=== PATIENT | male | born 1950 | race Caucasian/White ===

== ENCOUNTER → 2025-05-15 10:14 | Outpatient (REF) | payer MEDICARE, OTHER, SELFPAY ==
[2025-05-15 11:04] LABS: Hematocrit 44.2 % (39.0-52.0); Hemoglobin 15.1 g/dL (13.0-18.0); Mean Corp Hgb Conc. 34.2 g/dL (33.0-37.0); Mean Corpuscular Volume 90.9 fL (80.0-94.0); Nucleated Red Blood Cells % 0 % (-); Platelet Count 180 10^3/uL (130-400); Red Cell Dist. Width 13.2 % (11.5-14.5)
[2025-05-15 11:15] LABS: INR 1.62; PT 19.4 Sec (11.4-14.6)
[2025-05-15 11:27] LABS: ALT (SGPT) 41 U/L (0-50); AST (SGOT) 44 U/L (17-59); Albumin 4.9 g/dl (3.5-5.0); Alkaline Phosphatase 68 U/L (38-126); Blood Urea Nitrogen 15 mg/dl (9-20); Calcium 9.5 mg/dl (8.4-10.2); Carbon Dioxide 26 mmol/L (22-30); Chloride 105 mmol/L (98-107); Glucose 79 mg/dl (70-99); Magnesium 2.2 mg/dl (1.6-2.3); Potassium 3.7 mmol/L (3.5-5.1); Sodium 138 mmol/L (135-145); Total Protein 8.1 g/dl (6.3-8.2); eGFR > 60.00
== END ==
LOC: SDSPAT 10:14
PROVIDERS: ATTENDING PHYSICIAN Internal Medicine Cardiovascular Disease; FAMILY PHYSICIAN Internal Medicine; OTHER PHYSICIAN Internal Medicine Cardiovascular Disease
DX: I48.91 Unspecified atrial fibrillation (principal); I48.92 Unspecified atrial flutter
CPT/HCPCS: 36415; 75572; 80053; 83735; 85025; 85610; 86850; 86900; 86901; 93005; Q9967

== ENCOUNTER 2025-05-28 07:37 | Day surgery (SDC) | payer MEDICARE, OTHER, SELFPAY ==
--- NOTE | 2025-05-15 10:30 | HPS.HSE ---
Family Physician
-
Family Physician: NO INTERVIEW UNKNOWN
Chief Complaint
-
Paroxysmal atrial fibrillation and atrial flutter.
History of Present Illness
The patient is a 74 year old male presenting today for paroxysmal atrial fibrillation and atrial flutter. The patient describes shortness of breath, mostly with exertion, secondary to his atrial arrhythmias. His last two EKGs demonstrate atrial
fibrillation. One EKG also revealed atypical atrial flutter/tachycardia with a positive P wave across the precordium and somewhat flat in V5-6. It appears inferiorly directed with a relatively long isoelectric segment and relatively narrow P/fl
wave. He did have a Medtronic dual chamber pacemaker implanted in 2018 due to complete heart block. His most recent device check picked up what appears to be atrial flutter vs atrial tachycardia, which the patient has likely been in for a number of
weeks. He does report compliance with Eliquis for oral anticoagulation. He would like to eliminate the need for long-term Eliquis therapy if possible. Given this and his significant shortness of breath, he will proceed with an EP study, pulmonary
vein isolation, an atrial flutter ablation for more definitive arrhythmia management. He denies any current complaints today such as chest pain, shortness of breath at rest, palpitations, nausea, vomiting, diarrhea, lightheadedness, dizziness,
cough, sore throat, or fever.
Medical History
Past Medical History
Past Medical History: Reports Other
Additional Past Medical History:
1. Paroxysmal atrial fibrillation and atrial flutter, oral anticoagulation with Eliquis.
2. Hypertension.
3. Complete heart block, status post Medtronic dual chamber pacemaker implant 2018.
4. Hiatal hernia.
5. Degenerative disc disease.
6. Lymphoma, status post chemotherapy, last 2017; in remission.
7. History of anemia.
8. Anxiety.
9. History of tobacco abuse.
Past Surgical History: Reports Other
Additional Past Surgical History:
1. Medtronic dual chamber pacemaker implant.
2. Cardiac catheterization.
3. Circumcision.
Social History
Tobacco: Former Smoker (He is a former cigarette smoker who quit tobacco altogether rather remotely. )
Alcohol: None
Personal:
Living: Other (He lives with his in a multilevel home. )
Family History
Family History: Not pertinent
Allergies / Home Medications
Allergy/Medication List:
Home medications:
1. Eliquis 5 mg p.o. twice a day.
2. Ibuprofen 600 mg p.o. daily as needed.
Allergies: No known allergies.
Review of Systems
-
A 12 point ROS was completed and negative except as noted: Yes
Physical Exam
Vital Signs
Blood pressure 156/96. Heart rate 65. Respirations 18. Pulse ox 100% on room air.
Height 5 feet, 7 inches. Weight 79.6 kg. BMI 27.5.
Physical Exam
General: Well Developed, Well Nourished and No Apparent Distress
HEENT: NormoCephalic, Moist mucous membranes, Atraumatic and PERRLA
Respiratory: Clear
Cardiac: Irregular Rhythm and Other (Pacemaker site intact.)
GI: Soft, Non Tender and Non Distended
Musculoskeletal: No Edema and Normal Gait & Station
Skin: Warm and Dry
Neuro: AO x 3 and Nonfocal/grossly intact
Laboratory Results
-
DIAGNOSTIC STUDIES as of 05/15/2025: White blood cell count 6.5. Hemoglobin 15.1. Platelet count 180,000. PT 19.4. INR 1.62. Sodium 138. Potassium 3.7. BUN 15. Creatinine 0.7. Glucose 79. Magnesium 2.2. Calcium 9.5. AST 44. ALT 41. Albumin 4.9.
Type and screen A positive.
EKG 05/15/2025: Ventricular paced rhythm with underlying atypical atrial tachycardia.
Chest CT 05/15/2025: Single, individual right and left superior and inferior pulmonary veins. Osteal insertion of the right middle lobe pulmonary vein at the posterior inferior margin of the right superior pulmonary venous ostium. No left atrial
filling defect/thrombus is identified. Mild lower right paratracheal lymphadenopathy, nonspecific.
Echocardiogram 10/29/2023: Normal LV and RV size and function. No significant valvular abnormality. Pacemaker wire seen in the right ventricle.
Impression/Plan
-
IMPRESSION/PLAN:
1. Paroxysmal atrial fibrillation and atrial flutter: The patient is in need of an EP study with pulmonary vein isolation and atrial flutter ablation with Dr. Erwin Blankenship on 05/28/25. The benefits and risks of the procedure have been explained to
the patient. The patient understands these risks and wishes to proceed. He will not be required to undergo a pre-procedural transesophageal echocardiogram as he has been compliant with his home oral anticoagulation. He is aware to continue his
Eliquis uninterrupted prior to his procedure. He will take no medications the morning of his ablation.
[2025-05-15 10:45] VITALS: BMI 27.5
[2025-05-28] VITALS (13 sets, daily range): BP systolic 103–171; BP diastolic 64–98; BMI 28.3
[2025-05-28 11:11] LABS: ACT-LR - POC 297 Seconds (116-155)
[2025-05-28 11:34] LABS: ACT-LR - POC 298 Seconds (116-155)
[2025-05-28 11:51] LABS: ACT-LR - POC 335 Seconds (116-155)
[2025-05-28 12:08] LABS: ACT-LR - POC 337 Seconds (116-155)
--- NOTE | 2025-05-28 12:17 | ITS.CL.ABL ---
Pool Attendant - Ablation
Ablation
Procedure Report:
ELECTROPHYSIOLOGY ABLATION STUDY
DATE:: May 28, 2025�����������������������������REFERRING: Dr. Ken Art
INDICATION: Persistent supraventricular tachycardia in the form of atrial fibrillation and atypical atrial flutter
HISTORY: See H and P.��Prior permanent pacemaker for complete heart block who presents with persistent atrial arrhythmias
ANTIARRHYTHMIC DRUG: Not currently
PRE-PROCEDURE LJ: Normal ejection fraction without significant pericardial effusion or left atrial appendage thrombus noted
PRESENTING RHYTHM: Atypical atrial flutter which was determined to be left atrial roof dependent flutter cycle length 310-320 ms which by entrainment supported micro reentry
'TIME-OUT':��called and confirmed.
SEDATION/ANESTHESIA:��provided via the anesthesia department using general anesthesia (LMA).
INTRAVENOUS/ARTERIAL ACCESS:
Right femoral venous -8Fr
Left femoral venous - 8 Fr, 6 Fr
[id number] suture bilaterally
Ultrasound guidance for bilateral femoral vein access was utilized by me to obtain access with demonstration of normal anatomy
CHADS-VASC Score:
HAS-Bled Score
PROCEDURE:
1.��The dual-chamber pacemaker was programmed to VOO at beginning of procedure then DDD after cardioversion and finally DDDR 60 to 130 bpm post procedure with excellent lead parameters and stable lead positions. A decapolar CS catheter was placed
within the CS for mapping and pacing.��This was also used as the reference catheter for the 3-D map. We first brought the decapolar catheter to the right atrium and the lateral right atrium had PPI greater than tachycardia cycle length of 100 ms or
greater. Initially the proximal and distal coronary sinus were 40 to 50 ms post pacing interval greater than tachycardia cycle length. As such we proceeded to transseptal puncture and performed activation and voltage mapping of the left atrium.
Markedly enlarged left atrium at baseline demonstrating focal areas of entrainment in the posterior wall and roof outside the left pulmonary veins near an area of fractionated signal and lower voltage in the posterior wall. The remainder of the
posterior wall pulmonary veins and mitral isthmus were out of the circuit although the mitral isthmus was 30 to 40 ms PPI greater than tachycardia cycle length when entrained from the left atrium proper. The focal area of entrainment from the roof
and posterior wall with PPI equal to tachycardia cycle length supported Micra reentry around an area of diminished voltage in the posterior wall and roof of the left atrium. We then performed PFA lesions in this region which immediately slowed
tachycardia to 340-350 ms without significant change in CS activation. We completed a box lesion set and wide circumferential ablation around the left and right pulmonary veins without change in tachycardia cycle length. We then repeated
entrainment demonstrating now that the mitral isthmus was in the circuit laterally with PPI equal to tachycardia cycle length and the mitral annulus activating in a counterclockwise fashion. Utilizing intracardiac ultrasound visualization we
performed radiofrequency energy at the annulus back towards the mid isthmus at 400 W for 4 seconds. From the mid isthmus back to the left inferior pulmonary vein we performed PFA lesions with slowing and termination of the tachycardia. Once
tachycardia was terminated we changed the patient from VOO to DDD so we could restore AV synchrony. Electroanatomic voltage map was then performed demonstrating entrance and exit block in all 4 pulmonary veins as well as roof posterior wall and
floor of the left atrium and with coronary sinus pacing block across the mitral isthmus intra isthmus conduction time of 150-160 ms. We then performed EP study and the patient was noninducible for other arrhythmias.
2. The intracardiac ultrasound catheter was positioned in the RA to identify the FO for targeting of transseptal puncture, assist��in identification of the pulmonary vein ostia, monitoring pre and post ablation pulmonary vein flow velocities,
monitoring for 'bubble' formation during RF application as a sign of thermal injury,��and to monitor for pericardial effusion during mapping and ablation procedure.���Left atrial size, LV ejection fraction, and pulmonary vein flows were monitored
pre and post ablation procedure. The other valves were inspected and found to be free of significant regurgitation or stenosis.
3.��Half of the calculated heparin bolus was administered prior to the first transeptal puncture.��Transseptal puncture was performed to diagnose RA and LA pressure so that safety of LA mapping and ablation could be further assessed, and to access
the left atrium and pulmonary veins for mapping and ablation.��This entailed advancing an 10 Japanese steerable sheath with dilator into the superior vena cava and withdrawing both (monitoring intracardiac ultrasound, fluoroscopy and tip pressure)
with the tip oriented toward the atrial septum.��The fossa ovalis was engaged (indicated by sudden displacement of the sheath tip as well as tenting of the fossa seen on intracardiac ultrasound).��Left atrial access required a pass with the
Brockenbrough needle extended.��Left atrial catheter position was confirmed by pressure monitoring (RA mean pressure 4 mm Hg and LA mean presure 12 mm Hg), LA saturation (99%),��as well as fluoroscopy.��The sheath was advanced over the dilator and
positioned in the left atrium.��This procedure was repeated for the Agilis sheath.��The remainder of the calculated heparin bolus was administered and heparin was
infused to maintain ACT at 300 -350 seconds throughout the case.
4.��RA pacing was performed via the proximal decapolar poles and LA pacing was performed via the distal decapolr poles.
5. The decapolar catheter was first positioned at the His position for His Bundle recording which was tagged via the [employer] system, and then passed to the RVA for RV pacing and recording.
6. The 9 mm lattice LIPV, LSPV, RSPV and the RIPV.��
7.��Next, a 3-D map was created using [employer].
8. We initially targeted the patient's roof dependent micro reentrant atrial flutter with initial lesions transitioning to a different atrial flutter mechanism. Tachycardia persisted as above wide circumferential ablation was then performed around
the left and right veins was performed with entrance block achieved. Initially entrance block was achieved and we then performed posterior wall isolation with roof posterior wall and floor lines which rendered the posterior wall isolated.
Tachycardia persisted and we performed mitral flutter line from the lateral mitral annulus at approximately 4:00 back towards the left inferior pulmonary vein which slowed and terminated tachycardia into sinus rhythm. We then confirmed exit block
in all 4 pulmonary veins posterior wall and persistent bidirectional block across the mitral isthmus.
9. The patient was programmed to DDDR 6130 bpm the end the procedure.
TOTAL FLOURO TIME: 16 minutes
TOTAL RF DURATION: 1 minutes
REVERSAL OF HEPARIN: 40 mg of protamine, slow IV administration
COMPLICATIONS:
None
Intracardiac US shows no pericardial effusion post ablation.
SUMMARY:��
Complex left atrial mapping and ablation.
Clinical micro reentrant left atrial roof dependent flutter, transition to counterclockwise mitral flutter, pulmonary vein isolation, roof, posterior wall and floor lines were performed in arrhythmia and the patient was cardioverted to sinus rhythm
converting entrance and exit block in all 4 pulmonary veins, the posterior wall, bidirectional block across the mitral isthmus.
RECOMMENDATIONS:
1. Ambulate in 4 hours
2. Resume anticoagulation
3.��Low threshold for antiarrhythmic drug therapy if the patient has recurrent arrhythmia. He has diffuse scarring in the posterior of the left atrium at baseline, 2 macro reentrant atrial flutters at baseline, and a moderate to severely enlarged
left atrium. Would consider class III antiarrhythmic if he has further arrhythmia recurrence
4.��Can consider same-day discharge
Copy to: Dr. Ken Art
--- NOTE | 2025-05-28 16:35 | W.PN.UPDATE ---
Update Note
Progress Note Update
74 yo WM s/p PVI (same day). He denies cp, sob, wilder diet, voiding, EKG AV dual paced, b/l groins c/d/i, no HT, soft. He will resume Eliquis tonight. Activity restrictions reviewed. He will f/u Dr. Lopez in 3 mo. He is for d/c home after 5pm.
== END 2025-05-28 17:05 | disposition home or self-care (01) ==
LOC: CATH 07:37
PROVIDERS: ATTENDING PHYSICIAN Internal Medicine Cardiovascular Disease; FAMILY PHYSICIAN Internal Medicine; OTHER PHYSICIAN Internal Medicine Cardiovascular Disease
DX: I48.19 Other persistent atrial fibrillation (principal); I48.4 Atypical atrial flutter; I47.10 Supraventricular tachycardia, unspecified; I10 Essential (primary) hypertension; Z87.891 Personal history of nicotine dependence; F41.9 Anxiety disorder, unspecified; Z85.72 Personal history of non-Hodgkin lymphomas; Z79.1 Long term (current) use of non-steroidal anti-inflammatories (NSAID); Z79.01 Long term (current) use of anticoagulants; Z92.21 Personal history of antineoplastic chemotherapy; I44.2 Atrioventricular block, complete; D64.9 Anemia, unspecified
CPT/HCPCS: C1894; C1730; C1892; C1759; C1733; 85347; 86900; 86901; 93005; 93656; 93657